=== PATIENT | female | born 2000 | race Two or more races ===

== ENCOUNTER 2022-03-28 01:27 | Emergency (ER) | payer MEDICAID, OTHER ==
[~2022-03-28] VITALS: Ht 175.3 cm; Wt 128.1 kg
[2022-03-28] MEDS ORDERED: AMOX-277 PO (03:26)
[2022-03-28 03:33] VITALS: BP 126/71
== END 2022-03-28 03:42 | disposition home or self-care (01) ==
LOC: ER 01:27
DX: H66.91 Otitis media, unspecified, right ear (principal); F17.200 Nicotine dependence, unspecified, uncomplicated

== ENCOUNTER 2024-06-05 18:43 | Emergency (ER) | payer MEDICAID ==
[~2024-06-05] VITALS: Ht 175.3 cm; Wt 134.1 kg
[~2024-06-05 18:43] MED LIST: AMOX875T4 PO
--- NOTE | 2024-06-05 21:46 | ED.PDOC ---
History of Present Illness HPI Comments 24 y/o F presents with c/o nausea, vomiting, and generalized weakness, today. Patient is a poor historian and endorses on sudden and unprovoked onset of symptoms, earlier, this evening. She comments on vomiting multiple time and having no liquid or food tolerance since. Patient denies any abdominal pain, hem atemesis, diarrhea, urinary symptoms, fever, chills, or other associated symptoms or modifiers at this time. Chief Complaint: Nausea/Vomiting Time Seen by MD: 21:00 Primary Care Provider: none Reviewed Notes: Nurses Notes, Medications, Allergies Allergies: Coded Allergies: NO KNOWN ALLERGIES (Unverified , 03/28/22) Home Meds Active Scripts Amoxicillin & Pot Clavulanate (Amoxicillin/Potassium Cla) 875 Mg Tab, 1 TAB PO BID for 5 Days, #10 TAB 0 Refills Prov:ZACK BUSTILLOS 03/28/22 Information Source: Patient Mode of Arrival: Ambulatory Severity: Moderate Timing: Hours Duration: Since onset Prehospital treatment: None Past Medical History Past Medical History (Other): morbid obesity Surgical History: Denies all surgeries STEAM FITTER HELPER History: Denies all STEAM FITTER HELPER Hx Family History Family History: Reviewed,noncontributory to illness Social History Smoker: Cigarettes Alcohol: Occasionally Drugs: Denies Drug Use Lives In: Home Gastrointestinal: reports: nausea, vomiting Neurological: reports: weakness All Other Systems: Reviewed and Negative (negative unless otherwise stated above or in HPI) Physical Exam General Appearance: No Apparent Distress, Obese HEENT: Normal ENT Inspection, Pharynx Normal, TMs Normal, Other (dry mucus membranes, otherwise normal ENT inspection ) Neck: Full Range of Motion, Non-Tender, Normal, Normal Inspection Respiratory: Chest Non-Tender, Lungs Clear, No Accessory Muscle Use, No Respiratory Distress, Normal Breath Sounds Cardiovascular: No Edema, No JVD, No Murmur, No Gallop, Normal Peripheral Pulses, Regular Rate/Rhythm Breast Exam: Deferred Gastrointestinal: No Organomegaly, Non Tender, No Pulsatile Mass, Normal Bowel Sounds, Soft Genitalia: Deferred Pelvic: Deferred Rectal: Deferred Extremities: No calf tenderness, Normal capillary refill, Normal inspection, Normal range of motion, Non-tender, No pedal edema Musculoskeletal : Apperance: Normal Neurologic: Alert, supervising bailiff II-XII nml as Tested, No Motor Deficits, Normal Affect, Normal Mood, No Sensory Deficits Cerebellar Function: Normal Reflexes: Normal Skin: Dry, Normal Color, Warm Lymphatic: No Adenopathy Was a procedure done? Was a procedure done?: No Differential Dx Considerations may include: gastritis, gastroenteritis, viral syndrome, spoiled food, X-Ray, Labs, Meds, VS Vital Signs Date Time Temp Pulse Resp B/P (MAP) Pulse Ox O2 Delivery O2 Flow Rate FiO2 06/05/24 22:21 107 17 100 Room Air* 0 21 06/05/24 22:19 98.2 107 17 122/86 (98) 100 98.2 06/05/24 18:50 98.2 117 17 122/86 (98) 100 Lab Test 06/05/24 21:38 Range/Units White Blood Count 10.8 4.4-10.8 10^3/uL Red Blood Count 5.67 H 4.0-5.20 10^6/uL Hemoglobin 11.6 L 12.2-16.2 g/dL Hematocrit 37.6 36.0-46.0 % Mean Corpuscular Volume 66.3 L 80.0-100.0 fL Mean Corpuscular Hemoglobin 20.5 L 28.0-32.0 pg Mean Corpuscular Hemoglobin Concent 30.9 L 32.0-36.0 g/dL Red Cell Distribution Width 16.6 H 11.8-14.3 % Platelet Count 415 140-450 10^3/uL Mean Platelet Volume 8.4 6.9-10.8 fL Neutrophils (%) (Auto) 90.9 H 37.0-80.0 % Lymphocytes (%) (Auto) 3.4 L 10.0-50.0 % Monocytes (%) (Auto) 5.6 0.0-12.0 % Eosinophils (%) (Auto) 0.0 0.0-7.0 % Basophils (%) (Auto) 0.1 0.0-2.0 % Neutrophils # (Auto) 9.8 H 1.6-8.6 10 ^3/uL Lymphocytes # (Auto) 0.4 0.4-5.4 10 ^3/uL Monocytes # (Auto) 0.6 0-1.3 10 ^3/uL Eosinophils # (Auto) 0 0-0.8 10 ^3/uL Basophils # (Auto) 0 0-0.2 10 ^3/uL Nucleated Red Blood Cells 0.0 % Sodium Level 138 136-145 mmol/L Potassium Level 3.8 3.5-5.1 mmol/L Chloride Level 105 98-107 mmol/L Carbon Dioxide Level 21 20-31 mmol/L Anion Gap 12 5-15 Blood Urea Nitrogen 19 9-23 mg/dL Creatinine 0.76 0.550-1.02 mg/dL Glomerular Filtration Rate Calc 112 >90 mL/min BUN/Creatinine Ratio 25.0 H 10.0-20.0 Serum Glucose 114 H 74-106 mg/dL Calcium Level 10.2 8.7-10.4 mg/dL Lipase 36 12-53 U/L Current Medications Medications (Trade) Dose Ordered Sig/Uzair Route Start Time Stop Time Status Last Admin Sodium Chloride 1,000 ml @ 1,000 mls/hr Q1H ONCE IV 06/05/24 21:30 06/05/24 22:29 DC 06/05/24 22:03 Ondansetron HCl (Zofran) 4 mg ONCE ONCE IV 06/05/24 21:30 06/05/24 21:31 DC 06/05/24 22:02 Pantoprazole Sodium (Protonix) 40 mg ONCE ONCE IV 06/05/24 21:30 06/05/24 21:31 DC 06/05/24 22:02 Ketorolac Tromethamine (Toradol Injection) 15 mg ONCE ONCE IV 06/05/24 21:30 06/05/24 21:31 DC 06/05/24 22:02 Acetaminophen (Tylenol Tablet) 650 mg ONCE ONCE PO 06/05/24 21:30 06/05/24 21:31 DC 06/05/24 22:05 Famotidine (Pepcid Injection) 20 mg ONCE ONCE IV 06/05/24 21:30 06/05/24 21:31 DC 06/05/24 22:01 Time of 1ST Reevaluation: 21:30 Reevaluation 1ST: Unchanged Patient Education/Counseling: Diagnosis, Treatment Family Education/Counseling: No Family Present Additional Information Previous visit documents reviewed: 03/28/25 ED physician note The following tests were ordered, and results were reviewed by me: urine test, UA, lipase, CBC, BMP I reviewed and agreed with the following test results read by other providers: I discussed treatment and results with medical personnel and: patient Departure 1 Departure Time of Disposition: 00:57 (Patient likely with viral gastroenteritis. We will discharge patient home with outpatient follow up) Impression: Primary Impression: Viral gastroenteritis Disposition: 01 HOME / SELF CARE / HOMELESS Condition: Stable Additional Instructions: You likely have gastroenteritis. It is important to stay well hydrated and well rested. This usually resolves within 1 week. If your symptoms worsen or you have any other concerns please return to the ER. Discharged With: Self Critical Care Note Critical Care Time?: No Stability Stability form required: No Heart Score Heart Score: Heart Score Response (Comments) Value History N/A 0 EKG N/A 0 Age N/A 0 Risk Factors N/A 0 Troponin N/A 0 Total 0 I personally scribed for CAN RICE MD ([email or web address]) on 06/05/24 at 21:46. Electronically submitted by Alexander Robison ([email or web address]). CAN RICE MD Jun 05, 2024 21:46
[2024-06-05 21:50] LABS: Basophils # (auto) 0 10 ^3/uL (0-0.2); Basophils % (auto) 0.1 % (0.0-2.0); Eosinophils # (auto) 0 10 ^3/uL (0-0.8); Hematocrit 37.6 % (36.0-46.0); Hemoglobin 11.6 g/dL (12.2-16.2); Lymphocytes # (auto) 0.4 10 ^3/uL (0.4-5.4); Lymphocytes % (auto) 3.4 % (10.0-50.0); Mean Corpuscular Hemoglobin 20.5 pg (28.0-32.0); Mean Corpuscular Hgb Conc. 30.9 g/dL (32.0-36.0); Mean Corpuscular Volume 66.3 fL (80.0-100.0); Monocytes # (auto) 0.6 10 ^3/uL (0-1.3); Monocytes % (auto) 5.6 % (0.0-12.0); Neutrophils # (auto) 9.8 10 ^3/uL (1.6-8.6); Neutrophils % (auto) 90.9 % (37.0-80.0); Platelet Count (auto) 415 10^3/uL (140-450); Red Blood Cells 5.67 10^6/uL (4.0-5.20); Red Cell Distribution Width 16.6 % (11.8-14.3); White Blood Cell 10.8 10^3/uL (4.4-10.8)
[2024-06-05] MEDS: FAMOTIDINE (10MG/ML) 2ML VL IV ONE (22:01)
[2024-06-05] MEDS: KETOROLAC TROMETH 30 MG/ML 1ML VIAL IV ONE (22:02)
[2024-06-05] MEDS: ONDANSETRON HCL 4 MG/2 ML VIAL IV ONE (22:02)
[2024-06-05] MEDS: PANTOPRAZOLE 40 MG/10 ML VIAL INJ IV ONE (22:02)
[2024-06-05] MEDS: SODIUM CHLORIDE 0.9% 1,000 ML IV ONE (22:03)
[2024-06-05] MEDS: ACETAMINOPHEN 325 MG TAB PO ONE (22:05)
[2024-06-05 22:06] LABS: Chloride 105 mmol/L (98-107); Potassium 3.8 mmol/L (3.5-5.1); Sodium 138 mmol/L (136-145)
[2024-06-05 22:07] LABS: Anion Gap 12 (5-15); Carbon Dioxide 21 mmol/L (20-31)
[2024-06-05 22:08] LABS: Calcium 10.2 mg/dL (8.7-10.4)
[2024-06-05 22:13] LABS: Blood Urea Nitrogen 19 mg/dL (9-23); Glucose 114 mg/dL (74-106); Lipase 36 U/L (12-53)
[2024-06-05 22:19] VITALS: BP 122/86; TEMP 98.2
[2024-06-05 22:21] VITALS: PULSE 107; RESP 17; O2SAT 100
== END 2024-06-06 01:47 | disposition home or self-care (01) ==
LOC: ER 18:43
DX: A08.4 Viral intestinal infection, unspecified (principal); E66.01 Morbid (severe) obesity due to excess calories; R11.2 Nausea with vomiting, unspecified; F17.210 Nicotine dependence, cigarettes, uncomplicated
CPT/HCPCS: 36415; 80048; 83690; 85025; 96361; 96374; 96375; 99284; J1885; J2405; J2470; J3490; J7030